=== PATIENT | female | born 1955 | race Caucasian/White ===

== ENCOUNTER 2024-03-12 05:58 | Observation (INO) ==
[~2024-03-12 05:58] MED LIST: Lidocaine 1% w EPI 1:100,000 MDV 20 ML VIAL ONE; Metoclopramide 5 MG/ML VIAL (10 mg) IV PRN; NS 0.45% 1000 ml BAG 1,000 ML IV SCH; Naloxone 0.4 mg VIAL 0.4 mg/ml 1 ml VIAL IV PRN; Ondansetron 4 mg VIAL 2 MG/ML 2 ml VIAL IV PRN
[2024-03-12] MEDS ORDERED: Scopolamine 1 mg/72hr PATCH ONE (06:21)
[2024-03-12 06:40] LABS: Rapid COVID-19 Molecular Undetected (Undetected)
[2024-03-12] MEDS: Scopolamine 1 mg/72hr PATCH TRANSDERM ONE (07:00)
[2024-03-12] MEDS: Lactated Ringers 1000 ml BAG 1,000 ML IV SCH (07:00)
[2024-03-12] MEDS: Buffered Lidocaine 1% SYRIN 1 ml INTRADERM ONE (07:00)
[2024-03-12] MEDS ORDERED: Propofol 10 MG/ML 20 ML BTL ONE ×2 (07:04→11:41)
[2024-03-12] MEDS ORDERED: Lidocaine 2% PF 5 ML VIAL ONE (07:07)
[2024-03-12] MEDS ORDERED: fentaNYL 100 mcg/2 ml 50 MCG/ML VIAL ONE ×3 (07:07→11:38)
[2024-03-12] MEDS ORDERED: Midazolam 2 mg/2 ml VIAL 1 mg/ml 2 ml VIAL (2 mg) ONE (07:08)
[2024-03-12] MEDS ORDERED: Rocuronium 50 mg VIAL 10 mg/ml 5 ml VIAL (50 mg) ONE (07:09)
[2024-03-12] MEDS: fentaNYL 100 mcg/2 ml 50 MCG/ML VIAL IV PRN (11:40)
[2024-03-12] MEDS: Acetaminophen IV 1 GM/100ML 1,000 MG/100 ML BAG IV ONE (11:52)
[2024-03-12] MEDS: oxyCODONE 5 mg/5 ml ORAL.SOLN UDC ONE (13:03)
[2024-03-12] MEDS ORDERED: Ondansetron ODT 4 mg TAB 4 MG TAB PO PRN (13:22)
[2024-03-12] MEDS ORDERED: oxyCODONE 5 mg/5 ml ORAL.SOLN UDC PO PRN (13:24)
[2024-03-12] MEDS ORDERED: Ondansetron 4 mg VIAL 2 MG/ML 2 ml VIAL IV PRN (13:26)
[2024-03-12 14:08] LABS: Calcium 8.8 mg/dL (8.6-10.3); Creatinine, Serum 0.77 mg/dL (0.51-0.95); Potassium 4.4 mmol/L (3.5-5.0)
[2024-03-12] MEDS: Calcium Carb (TUMS) 500 mg CHEW TAB PO SCH (14:10)
[2024-03-12 20:05] LABS: Calcium 8.4 mg/dL (8.6-10.3); Creatinine, Serum 0.93 mg/dL (0.51-0.95); Potassium 3.9 mmol/L (3.5-5.0); eGFR CKD-EPI 67.8 (>60)
[2024-03-12] MEDS: oxyCODONE 5 mg/5 ml ORAL.SOLN UDC PO PRN (20:43)
[2024-03-13 02:14] LABS: Calcium 7.7 mg/dL (8.6-10.3); Creatinine, Serum 0.93 mg/dL (0.51-0.95); Potassium 3.9 mmol/L (3.5-5.0); eGFR CKD-EPI 67.8 (>60)
[2024-03-13 06:11] LABS: Hematocrit 41.6 % (35-45); Hemoglobin 13.6 g/dL (11.5-14.3); Mean Corpuscular Hemoglobin 29.4 pg (27-33); Mean Corpuscular Hgb Conc 32.7 g/dL (31-36); Mean Corpuscular Volume 90.2 fL (80-97); Mean Platelet Volume 7.8 fL (7.5-11.2); Platelet Count 356 10^3/uL (150-450); Red Blood Count 4.61 10^6/uL (3.63-4.92); Red Cell Distribution Width 15.6 % (12-17); White Blood Count 22.3 10^3/uL (3.8-11.8)
[2024-03-13 06:30] LABS: Calcium 8.1 mg/dL (8.6-10.3); Creatinine, Serum 0.89 mg/dL (0.51-0.95); Potassium 4.4 mmol/L (3.5-5.0); eGFR CKD-EPI 71.5 (>60)
[2024-03-13 07:32] LABS: ABS Basophils 0.2 10^3/uL (0.0-0.1); ABS Lymphocytes 2.7 10^3/uL (1.0-4.8); ABS Monocytes 2.2 10^3/uL (0.0-0.9); ABS Neutrophils 17.2 10^3/uL (1.5-7.6); ABS Nucleated RBC 0.02 10^3/ul; Lymphocyte % 12.3 %; Nucleated Red Blood Cells % 0.1 %/100WBC (0.0-0.8)
[2024-03-13 09:55] VITALS: BP 113/65
[2024-03-13 12:30] LABS: Calcium 7.8 mg/dL (8.6-10.3); Creatinine, Serum 0.8 mg/dL (0.51-0.95); Potassium 3.8 mmol/L (3.5-5.0); eGFR CKD-EPI 81.2 (>60)
== END 2024-03-13 13:20 | disposition home or self-care (01) ==
LOC: OR 05:58 → SSU 05:58
PROVIDERS: ADMIT Otolaryngology; ATTEND Internal Medicine